=== PATIENT | male | born 1960 | race Caucasian/White ===

== ENCOUNTER 2025-01-10 10:47 | Outpatient (REF) | payer OTHER, SELFPAY ==
[2025-01-10 14:20] LABS: Hematocrit 41.3 % (42.0-52.0); Hemoglobin 13.9 g/dl (14.0-18.0); Mean Corpuscular HGB Conc 33.7 g/dl (31.0-36.0); Mean Corpuscular Hemoglobin 30.3 pg (27.0-33.0); Mean Corpuscular Volume 90.0 fL (80.0-98.0); NRBC Abs Auto 0.000 X10*3/uL (0.0-0.012); NRBC Pct Auto 0.0 /100WBC (0.0-0.2); Platelet Count 168 X10*3/uL (160-400); Red Blood Count 4.59 X10*6/uL (4.60-5.80); White Blood Count 8.3 X10*3/uL (4.8-10.8)
[2025-01-10 14:59] LABS: Alanine Aminotransferase 22 U/L (0-40); Albumin Level 4.3 g/dL (3.5-5.0); Alkaline Phosphatase 75 U/L (39-117); Anion Gap 11 (12-20); Aspartate Amino Transferase 27 U/L (5-37); Blood Urea Nitrogen 16 mg/dL (9-16); Calcium 9.2 mg/dL (8.4-10.2); Carbon Dioxide 26 mmol/L (22-29); Chloride 108 mmol/L (96-108); Cholesterol 169 mg/dL (<200); Estimated Glomerular Filt Rate > 60; HDL Cholesterol 34 mg/dL (>40); Potassium 4.1 mmol/L (3.3-5.1); Sodium 141 mmol/L (135-145); Total Protein 6.9 g/dL (6.5-8.0); Triglycerides 107 mg/dL (<150)
[2025-01-10 15:22] LABS: Ferritin 27 ng/mL (20-250)
[2025-01-10 15:32] LABS: Folate 9.1 ng/mL (> or = 4.0); Vitamin B12 302 pg/mL (200-900)
[2025-01-10 18:23] LABS: Appearance Urine Clear; Glucose Urine UA Negative (Negative); PH 6.0 (5.0-9.0); Specific Gravity - Urine 1.010 (1.005-1.025)
[2025-01-18 13:18] LABS: Testosterone, Free 59.2 pg/mL (35.0-155.0)
== END 2025-01-10 10:48 | disposition home or self-care (01) ==
LOC: HO.WFDLDS 10:47
PROVIDERS: PCP Nurse Practitioner Family; Visit Provider Nurse Practitioner Family
DX: Z23 Encounter for immunization (principal); Z76.89 Persons encountering health services in other specified circumstances; R30.0 Dysuria; N52.9 Male erectile dysfunction, unspecified; R32 Unspecified urinary incontinence; E66.9 Obesity, unspecified; R11.2 Nausea with vomiting, unspecified; R01.1 Cardiac murmur, unspecified; K46.9 Unspecified abdominal hernia without obstruction or gangrene; Z68.33 Body mass index [BMI] 33.0-33.9, adult; Z98.52 Vasectomy status; Z98.890 Other specified postprocedural states
CPT/HCPCS: 36415; 80053; 80061; 81003; 82306; 82570; 82607; 82728; 82746; 83036; 84153; 84402; 84403; 84443; 85027; 90471; 90472; 90656; 90715; 96127; 99202

== ENCOUNTER 2025-01-10 10:47 | Outpatient (AMB) | payer OTHER, SELFPAY ==
--- NOTE | 2025-01-10 10:53 | A.OFFPC_ITS ---
Vital Signs 01/10/25 11:00 Height 6 ft Weight 246 lb 2 oz BMI 33.4 BP 136/76 Blood Pressure Location Lt brachial Position Sitting Respiration 12 Pulse 68 Pulse Source Pulse Oximeter Temp 97.2 F Temp Source Oral Pulse Oximetry (%) 99 Oxygen Delivery Method Room Air Intake Visit Reasons: est care/hernia issues Intake Note: New patient to [facility] Draw End Hand Required: No Allergies No Known Allergies Allergy (Verified 01/10/25 11:09) Medication List - Last Reconciled 01/10/25 by KIMBERLI Richey No Known Home Meds Tobacco use date assessed: 01/10/25 Dental Screening Dental Screen Date: 01/10/25 Did you have a dental visit in the last 12 months?: Yes Did you have a dental problem in the last 6 months where you did not have access to dental care?: No Was dental information given to patient?: Patient has dentist HPI HPI Comments History of Present Illness Details 64 y/o M with obesity, ED, urinary incon t s/p vasectomy, hernia repair R inguinal and abdominal Social , ( Rissa), lives w/ disabled dtr Health Maintenance Colon Tdap 01/10/25 Flu 01/10/25 Specialists Gen Surg [facility] History of Present Illness The patient is a 64-year-old male presenting to [facility]. No records Erectile dysfunction: - The patient reports experiencing erect ile dysfunction, noting that he can achieve an erection, but it is not firm enough for penetration and may be lost with the feeling of needing to urinate. - He has been receiving medication, pres umably sildenafil, from an online service but reports that it does not work. - He previously tried a male enhancement supplement about two years ago without any effect. - His testosterone levels have not been checked. - He underwent a vasectomy 30 years ago and was told at the time that it might affect his performance as he aged. Recurrent incisional hernia: - The patient has a history of an umbili aidan hernia repair that had a poor outcome due to severe postoperative vomiting. - He also underwent a lower hernia repai r, right inguinal, at a different facility ([facility]), which had a better outcome. - He reports a current hernia that is so metimes bothersome, with associated numbness in the area. - He notes a change in his bowel habits, where he no longer feels premonitory back pain before a bowel movement. - Now has pain and swelling in left ingu inal area present for years but worsening Red dye sensitivity: - The patient reports developing a sensi tivity to red dye after taking a certain supplement. - He also associated drinking a red-colo red beverage with urinary leakage at night. - Ingestion of red dye, even from a adama schino mariscal, causes his body to reject it, resulting in abdominal pain and rapid expulsion. Obesity: - The patient has a history of obesity w ith a BMI of 33.4. Past Medical History - Past Medical History: Obesity with a B NC of 33.4. - Past Surgical History: Vasectomy, yash ia repair. - Allergies: No known drug allergies; re ports sensitivity to red dye. - Medications: Takes no medications. - Social History: He is and live s with his daughter who has a disability. - Immunizations: Reports receiving six C OVID-19 shots. Review of Systems - Genitourinary: Reports erectile dysfun ction, characterized by an inability to maintain an erection sufficient for penetration. - Genitourinary: Reports urinary leakage , which he associates with drinking red- colored beverages and also possibly related to his abdominal hernias and the urge to urinate. - Integumentary: Reports cracked skin on heels. - Gastrointestinal: Reports abdominal pa in and rapid passage of stool after ingesting red dye. - Neurological: Reports intermittent num bness in the area of his abdominal hernia. - Allergies: Denies medication allergies but reports a sensitivity to red dye. Physical Exam General: Well developed, well nourished, in no acute distress. Appears stated age. Head: Normocephalic, atraumatic. Eyes: Pupils are equal, round and reactive to light and accommodation. Conjunctivae are clear. Lungs: Clear to auscultation bilaterally. No rales, rhonchi or wheeze noted. Good air flow in all cantrell. Heart: Regular rate and rhythm. 1/6 murmur is noted. No clicks, rubs or gallops are noted. Abdomen: see below Musculoskeletal: Joints are nontender, without swelling, redness, or effusions. Pulses: Peripheral pulses are equal and palpable bilaterally. Extremities: No clubbing, cyanosis nor edema is noted. Psych: Mood and affect appropriate. Results Pending Medical Decision Making The patient is a 64-year-old male establishing care, presenting with chronic erectile dysfunction and symptomatic recurrent abdominal hernias. His erectile dysfunction has not responded to sildenafil from an online service, and the etiology is unclear. An underlying cause, such as low testosterone or hyperglycemia, should be investigated before considering alternative pharmacotherapy. Therefore, I ordered labs including testosterone and a basic metabolic panel. On physical exam, a new heart murmur was auscultated. Although likely benign, it warrants investigation to rule out significant structural heart disease, and thus an echocardiogram is ordered. The abdominal exam revealed multiple, significant hernias, including recurrent o conchis, which are clearly symptomatic, causing numbness and discomfort. These require surgical evaluation, and a referral to general surgery is indicated. The surgeons will likely order a CT scan for preoperative planning. For health maintenance, the patient agreed to and will receive Tdap and influenza immunizations today. A follow-up visit is scheduled in four weeks to review all results and adjust the plan accordingly. Plan 1. Recurrent & New Hernia - Physical exam confirms multiple herni as, which are symptomatic. - A referral will be placed for the [facility] surgery group to evaluate the patient. - The patient was informed that the surg eons will likely order additional imaging, such as a CT scan. 2. Erectile Dysfunction - The plan is to investigate for an unde rlying cause, such as low testosterone or high blood sugar, before prescribing medication. - Lab work, including a testosterone lev el, was ordered. 3. New Heart Murmur - An echocardiogram (ultrasound of the h eart) is ordered to evaluate the newly discovered murmur. - The patient will receive a call to [facility] the test. 4. Health Maintenance - Administered influenza and Tdap vaccin ations. - Ordered baseline labs and a urinalysis . - Instructed the patient to sign up for the patient portal to receive results and communicate. - Scheduled a follow-up visit in [facility] four weeks to review the results. Patient Instructions - Please go to our lab to have blood wor k and a urine sample collected before you leave today. - You will receive Tdap (tetanus) and fl u shots today before you go. - You will get a phone call to schedule an echocardiogram, which is an ultrasound of your heart, to look at the murmur that was heard today. - Our office will send a referral to the general surgery team for your hernias, and their office will call you to set up an appointment. - The surgeons will likely order more te sts, like a CAT scan, to get a better look at the hernias. - Please make sure to sign up for our [facility] [employer] portal, which is a secure website where you can see your test results and send messages to me. - Please schedule a follow-up appointmen t with me in about four weeks to go over your test results. Consent The patient verbally consented to receiving the Tdap and influenza vaccinations after the benefits were explained. He also agreed to the plan for bloodwork, an echocardiogram, and a referral to general surgery. Patient was informed and verbally consented to the use of an ambient scribe for clinic note documentation during this visit. Total time spent caring for the patient today was 45 minutes. This includes time spent before the visit reviewing the chart, time spent during the visit, and time spent after the visit on documentation, reviewing laboratory results, diagnostic imaging, medications, performing a medically necessary evaluation, counseling on diagnoses, care coordination, ordering appropriate tests, ordering appropriate medications, review of tests performed by other providers, reporting test results with the patient, communication with other healthcare providers. [facility] Medical History (Updated 01/10/25 @ 11:43 by KIMBERLI Richey) Hernia Surgical History (Updated 01/10/25 @ 11:18 by KIMBERLI Richey) H/O hernia repair H/O vasectomy Family History (Updated 01/10/25 @ 11:06 by Dario Monteiro MA) Maternal Grandmother Diabetes Mother Cancer Thyroid disorder Substance abuse Social History (Updated 01/10/25 @ 10:54 by Dario Monteiro MA) Household Members: Spouse, Family and Children Both parents involved: No Caregiver staying overnight: No Housing: House Are you a primary prompt care rn to a significant other at home: Yes Do you presently have visiting nurse or other home services: No 75 years or older and lives alone: No Alcohol intake: current Alcohol intake frequency: a few times a month Patient Tobacco Use Status: Never used Tobacco e-Cigarette/Vaping Use: Never Used Second Hand Smoke Exposure: No service: No Current occupational status: other 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 1. Little interest or pleasure in doing things: not at all 2. Feeling down, depressed, or hopeless: not at all 3. Trouble falling or staying asleep, or sleeping too much: not at all 4. Feeling tired or having little energy: not at all 5. Poor appetite or overeating: not at all 6. Feeling bad about yourself - or that you are a failure or have let yourself or your family down: not at all 7. Trouble concentrating on things, such as reading the newspaper or watching television: not at all 8. Moving or speaking so slowly that other people could have noticed. Or the opposite - being so fidgety or restless that you have been moving around a lot more than usual: not at all 9. Thoughts that you would be better off or of hurting yourself in some way: not at all Total score: 0 Depression Screening Interpretation: Negative Depression Screening Done: Yes 35643 - PHQ-9 Billing: Yes Source: Developed by Drs. Shahriar Wylie, Juanita Norton, uLc Matthews and colleagues, with an educational gee from [employer]. Thrive Questionnaire Date Thrive assessed: 01/10/25 I am a: Patient What is your living situation today?: I have a steady place to live Within the past 12 months, did the food you bought not last and you didn't have the money to get more?: Never true Within the past 12 months, did you worry whether your food would run out before you got money to buy more?: Never true Do you have trouble paying for medicines?: No Do you have trouble getting transportation to medical appointments?: No Do you have trouble paying your heating and electricity bill?: No Do you have trouble taking care of your child, family member or friend?: Yes Do you have trouble with day-to-day activities such as bathing, preparing meals, shopping, managing finances, etc.?: No Are you currently unemployed and looking for a job?: No Are you interested in more education?: No Please select the resources that you would like help with: None Currently or been in a relationship where the following occur: No concerns reported THRIVE Score: 0 AUDIT C Alcohol Use Questionnaire (AUDIT-C) 1. How often do you have a drink containing alcohol?: Monthly or less 2. How many drinks containing alcohol do you have on a typical day when you are drinking?: 1 or 2 3. How often do you have six or more drinks on one occasion?: Never Total Score: 1 Score Reviewed/Action Taken: Yes MILLIE-7 AMB Questionnaire MILLIE-7 Date MILLIE - 7 assessed: 01/10/25 Feeling nervous, anxious, or on edge: 0 = Not at all Not being able to stop or control worryin = Not at all Worrying too much about different things: 0 = Not at all Trouble relaxin = Not at all Being so restless that it is hard to sit still: 0 = Not at all Becoming easily annoyed or irritable: 0 = Not at all Feeling afraid as if something awful might happen: 0 = Not at all Total MILLIE-7 score (0-4 normal; 5-9 mild; 10-14 moderate; 15-21 severe): 0 Source: Developed by Drs. Shahriar Wylie, Juanita Norton, Luc Matthews and colleagues, with an educational gee from [employer]. MILLIE-7 Assessment Billing MILLIE-7 Assessment Tool: MILLIE-7 Assessment 71585 Physical exam (Primary Care) Vital Signs: Last Vital Signs Temp 97.2 F 01/10/25 11:00 Pulse 68 01/10/25 11:00 Resp 12 01/10/25 11:00 BP 136/76 01/10/25 11:00 Pulse Ox 99 01/10/25 11:00 Oxygen Delivery Method Room Air 01/10/25 11:00 BMI result Body Mass Index 33.4 BMI Assessment/Plan discussion: High BMI High, discussed plan: lifestyle Tobacco/Smoking Status: Tobacco use Status Tobacco use date assessed 01/10/25 01/10/25 10:55 Patient Tobacco Use Status Never used Tobacco 01/10/25 11:08 e-Cigarette/Vaping Use Never Used 01/10/25 11:08 PHQ-9: PHQ-9 Score PHQ-9: Total score 0 01/10/25 11:06 Depression Screening Interpretation: Negative Thrive Assessment: Date of Thrive Assessment Date Thrive assessed 11/14/25 11/14/25 10:55 Currently or been in a relationship where the following occur: No concerns repor logan GI Inspection: Yes obesity and Yes scar Palpation (GI): Soft to palpation and Hernia present (incisional from the R inguinal hernia repair ) indirect inguinal on the left, ventral and other Auscultation: normal bowel sounds Office Procedures Flu Questionnaire Does the patient have a severe egg allergy?: No Does the patient have severe life threatening allergies?: No Does the patient have a fever or illness today?: No Has the patient ever had Guillain-Antigo Syndrome?: No Has the patient ever had any past reaction to a flu shot?: No Immunizations Fluarix [id number] (PF) 45 mcg (15 mcg x 3)/0.5 mL IM syringe Performing Provider: KIMBERLI Richey Performing Location: [facility] Family Medicine Administered by: Dario Monteiro MA on 01/10/25 11:38 Dose Route Admin Location Dispensed Lot Number Expiration Date NDC Copy Manager 0.5 mL IM Right Deltoid 0.5 mL [id number] 08/26/25 [id number] [employer] VIS Given Date VIS Provided VIS Publication Date 01/10/25 Single Vaccine 24 Eligibility Eligibility Date Funding Source Not VFC Eligible 01/10/25 Private Boostrix Tdap 2.5 Lf unit-8 mcg-5 Lf/0.5 mL intramuscular syringe Performing Provider: KIMBERLI Richey Performing Location: [facility] Family Medicine Administered by: Dario Monteiro MA on 01/10/25 11:39 Dose Route Admin Location Dispensed Lot Number Expiration Date ND Copy Manager 0.5 mL IM Left Deltoid 0.5 mL [id number] 01/24/27 [id number] [employer] Total Dispensed Waste 0.5 mL 0 % VIS Given Date VIS Provided VIS Publication Date 01/10/25 Single Vaccine 20 Eligibility Eligibility Date Funding Source Not VFC Eligible 01/10/25 Private Coding Level of Care Code New Pt Level 4 (38719) Complex EM visit Add On G2211 Diagnoses Encounter to establish care Z76.89 Obesity (BMI 30-39.9) E66.9 Erectile dysfunction, unspecified erectile dysfunction type N52.9 Erectile dysfunction type: unspecified Urinary incontinence, unspecified type R32 Urinary Incontinence type: unspecified incontinence Influenza vaccination administered at current visit Z23 Need for Tdap vaccination Z23 PONV (postoperative nausea and vomiting) R11.2; Z98.890 Hernia K46.9 Heart murmur on physical examination R01.1 Additional Codes MILLIE-7 Assessment Billing - MILLIE-7 Assessment Tool: MILLIE-7 Assessment 24216 ([id number]) PHQ-9 - 41607 - PHQ-9 Billing: Yes ([id number]) Assessment & Plan Assessment & Plan (1) Encounter to establish care: Code(s): Z76.89 - Persons encountering health services in other specified circumstances (2) Obesity (BMI 30-39.9): Code(s): E66.9 - Obesity, unspecified Category: Medical (3) Erectile dysfunction: Code(s): N52.9 - Male erectile dysfunction, unspecified Category: Medical Qualifiers: Erectile dysfunction type: unspecified Qualified Code(s): N52.9 - Male erectile dysfunction, unspecified (4) Urinary incontinence: Code(s): R32 - Unspecified urinary incontinence Category: Medical Qualifiers: Urinary Incontinence type: unspecified incontinence Qualified Code(s): R32 - Unspecified urinary incontinence (5) Influenza vaccination administered at current visit: Onset Date: ~01/10/25 Code(s): Z23 - Encounter for immunization Category: Medical (6) Need for Tdap vaccination: Onset Date: ~01/10/25 Code(s): Z23 - Encounter for immunization Category: Medical (7) PONV (postoperative nausea and vomiting): Code(s): R11.2 - Nausea with vomiting, unspecified; Z98.890 - Other specified postprocedural states Category: Medical (8) Hernia: Code(s): K46.9 - Unspecified abdominal hernia without obstruction or gangrene Category: Medical (9) Heart murmur on physical examination: Code(s): R01.1 - Cardiac murmur, unspecified Category: Medical Plan . Orders: Orders UA CC w/rflx Micro + Cult Today E66.9 - Obesity, unspecified, N52.9 - Male erectile dysfunction, unspecified, R30.0 - Dysuria, R32 - Unspecified urinary incontinence Prostate Specific Antigen Scr Today E66.9 - Obesity, unspecified, N52.9 - Male erectile dysfunction, unspecified, R32 - Unspecified urinary incontinence Ferritin Today E66.9 - Obesity, unspecified, N52.9 - Male erectile dysfunction, unspecified, R32 - Unspecified urinary incontinence Microalbumin, Random (w Creat) Today E66.9 - Obesity, unspecified, N52.9 - Male erectile dysfunction, unspecified, R32 - Unspecified urinary incontinence Vitamin B12 and Folate Today E66.9 - Obesity, unspecified, N52.9 - Male erectile dysfunction, unspecified, R32 - Unspecified urinary incontinence TSH reflex Free T4 Today E66.9 - Obesity, unspecified, N52.9 - Male erectile dysfunction, unspecified, R32 - Unspecified urinary incontinence Vitamin D 25-OH Total Today E66.9 - Obesity, unspecified, N52.9 - Male erectile dysfunction, unspecified, R32 - Unspecified urinary incontinence Testosterone, Free/Total Today E66.9 - Obesity, unspecified, N52.9 - Male erectile dysfunction, unspecified, R32 - Unspecified urinary incontinence Influenza [id number] Immunization Today Z23 - Encounter for immunization Complete Blood Count no Diff Today E66.9 - Obesity, unspecified, N52.9 - Male erectile dysfunction, unspecified, R32 - Unspecified urinary incontinence Comprehensive Met. Panel Today E66.9 - Obesity, unspecified, N52.9 - Male erectile dysfunction, unspecified, R32 - Unspecified urinary incontinence Hemoglobin A1c Today E66.9 - Obesity, unspecified, N52.9 - Male erectile dysfunction, unspecified, R32 - Unspecified urinary incontinence Lipid Panel Today E66.9 - Obesity, unspecified, N52.9 - Male erectile dysfunction, unspecified, R32 - Unspecified urinary incontinence CA echo transthoracic complete Today R01.1 - Cardiac murmur, unspecified TDaP Immunization Today Z23 - Encounter for immunization Referrals General Surgery Referral K46.9 - Unspecified abdominal hernia without obstruction or gangrene Patient Instructions: Walk-In Care (Urgent Care): We Make it Easy Walk-in for urgent medical issues such as: ? Seasonal Allergies ? Insect Bites ? Cough ? Diarrhea ? Acute Asthma Attacks ? Back, Knee or Joint Pain ? Ear Infection ? Fever without a Rash ? Headaches ? Nausea ? Eugenio Saenz Eye, Rash or Skin Irritation ? Sore Throat ? Sports Physicals ? Vomiting Most insurances are accepted. Patients do not need to be part of the [facility] to seek care at the walk-in clinic. Locations [address], [place] Open Monday through Monday 8am-5pm *Hours may vary due to staffing availability. To confirm Walk-In Care hours please call. [address] [place] [address] ? [phone] [facility] Walk-In Care in [place] provides services to ages 18 and over. Open Monday-Monday: 7 a.m. to 5 p.m. and Monday: 9 a.m. to 3 p.m.* *Hours may vary due to staffing availability. To confirm Walk-In Care hours in [place], please call [phone]. [address] [place] [address] ? [phone] [facility] Walk-In Care in [place] provides services to ages 12 and over. Open Monday-Monday: 8 a.m. to 5 p.m. Hours may vary due to staffing availability. To confirm Walk-In Care hours in [place], please call [phone]. LABORATORY SERVICES: [facility] Lab ? Primary Location [address] [place] [address] Monday through Monday 6:00 AM ? 5:00 PM Monday 7:00 AM ? 11:00 AM* [phone] The [facility] Lab is centrally located near the front entrance of the [facility] for easy outpatient access. Convenient parking is provided for outpatients. *Hours may vary due to staffing availability. To confirm Laboratory hours for any location, please call [phone]. Offsite Location For your convenience, we offer offsite laboratory draw stations at the following locations: [address] [place] [address] ? [facility] [address], [address] Monday through Monday 7:30 AM ? 1:00 PM* [phone] *Hours may vary due to staffing availability. To confirm Laboratory hours for any location, please call [phone]. [place] ? [address] Monday through Monday 6:00 AM ? 3:30 PM* Monday 6:30 AM ? 3 PM* [phone] *Hours may vary due to staffing availability. To confirm Laboratory hours for any location, please call [phone]. [address] [facility] Monday through Monday 7:30 AM ? 4:00 PM* [phone] *Hours may vary due to staffing availability. To confirm Laboratory hours for any location, please call [phone] [place] [address] Monday through 9:00 AM ? 4:00 PM* *Hours may vary due to staffing availability. To confirm Laboratory hours for any location, please call [phone]. Appointments are not necessary. Walk-ins are welcome. Like all the departments throughout the [facility], our Lab undergoes frequent reviews to ensure the quality and accuracy of test results, and our staff takes special pride in its status as a nationally accredited facility. Patient Portal: [facility] ONE PATIENT. ONE RECORD. BETTER CARE. [facility] has a fully integrated, cutting- edge mobile electronic health information system that has revolutionized the way we care for our patients and manage our organization. This system improves communication and coordination enabling us to provide safe, higher-quality care, and an overall positive experience for staff and patients. Our first priority, as always, is to deliver the highest quality care possible. The system is running in the background supporting that priority. This portal is for all [facility] services and practices. If you are experiencing any technical difficulties with enrolling or logging into the Patient Portal please complete the [facility] Patient Portal Technical Support Form. [facility] now offers a new secure on-line interactive tool for patients to review their health information ? ?Patient Portal. This interactive web portal will enable patients and their families to take an active role in their care by providing easy, secure access to their health information via the internet. The Patient Portal provides patients with instant access to their health information, including laboratory results, medications, allergies, demographic information, visit history, and more. In addition to managing their own care, parents and health care proxies with authorized consent will appreciate the ability to access the records of those individuals for whom they provide care. Please note: if you wish to gain access (Proxy) to another patient?s portal, you will be required to come to the Medical Records Department in person at [facility]. Both the patient giving proxy access and the proxy will need to provide photo identification and complete the appropriate authorization. The Patient Portal also allows track their appointments online. The [facility] Patient Portal also saves patients time by allowing them to submit updates to their demographic and contact information prior to their visits. Por eleuterio email notifications will also alert patients to any new activity on their portal, such as test results and new appointments. In order to initially enroll in the [facility] Patient Portal, you will need to enter some required information including the following: * your [facility] Medical Record number * your personal home email address * name * date of Please note: In order to enroll in the [facility] Patient Portal, we need to have your email address on file in your electronic medical record. ?The email address needs to be specific for one person (yourself) in order for your Portal enrollment to be successful. ?You can update your email address in person with our Registration staff when you are registering for a hospital visit. ?Otherwise, you will need to come to the Health Information Management (Medical Records) Department at [facility]. ?We are open from Monday ? Monday from 7:30 a.m. ? 4:30 p.m. ?You will be required to present a photo id. Once you have successfully enrolled in the Patient Portal, you will receive a one-time user id and password for the Portal, sent to your email address. ?This will allow you to log into the Patient Portal within 99 hrs and reset your own l ogon id and password, and define personal security questions. ?Once your permanent login and password have been set, you can log into the [facility] Patient Portal at any time via the blue button above or from the Portal Logon button on any page of the [facility] website. [facility] and [facility] encourage all of our patients to enroll in Patient Portal as it presents a valuable opportunity for patients and their families to actively participate in their care and stay healthy Welcome to [facility]. ?We look forward to working with you.
[2025-01-10 11:00] VITALS: BP 136/76; PULSE 68; RESP 12; TEMP 36.2; O2SAT 99; BMI 33.4
== END 2025-01-10 11:41 | disposition home or self-care (01) ==
LOC: HO.HMCFM 10:48
PROVIDERS: PCP Nurse Practitioner Family; Visit Provider Nurse Practitioner Family
DX: Z76.89 Persons encountering health services in other specified circumstances (principal); E66.9 Obesity, unspecified; N52.9 Male erectile dysfunction, unspecified; R32 Unspecified urinary incontinence; Z23 Encounter for immunization; R11.2 Nausea with vomiting, unspecified; Z98.890 Other specified postprocedural states; K46.9 Unspecified abdominal hernia without obstruction or gangrene; R01.1 Cardiac murmur, unspecified; Z68.33 Body mass index [BMI] 33.0-33.9, adult

== ENCOUNTER 2025-02-05 12:43 | Outpatient (AMB) | payer OTHER, SELFPAY ==
--- NOTE | 2025-02-05 12:46 | A.OFFPC_ITS ---
Vital Signs 02/05/25 12:50 Height 6 ft Weight 249 lb 2 oz BMI 33.8 BP 132/70 Blood Pressure Location Rt brachial Position Sitting Respiration 12 Pulse 76 Pulse Source Pulse Oximeter Temp 97.6 F Temp Source Oral Pulse Oximetry (%) 96 Oxygen Delivery Method Room Air Intake Visit Reasons: fu w/ me to review labs Intake Note: Follow up to review labs. 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 Required: No Allergies No Known Allergies Allergy (Verified 02/05/25 12:48) Medication List - Last Reconciled 02/05/25 by MILDRED Richey No Known Home Meds Tobacco use date assessed: 02/05/25 Dental Screening Dental Screen Date: 02/05/25 Did you have a dental visit in the last 12 months?: Yes Did you have a dental problem in the last 6 months where you did not have access to dental care?: No Was dental information given to patient?: Patient has dentist HPI HPI Comments History of Present Illness Details 64 y/o M with obesity, ED, urinary incon t, mild anemia, vit d def, PVD s/p vasectomy, hernia repair R inguinal and abdominal Social , ( Rissa), lives w/ disabled dtr Health Maintenance Colon [place] [facility] 02/05[place]25 Tdap 01/10/25 Flu 01/10/25 Specialists Gen Surg [facility] [place] [facility] [place] [facility] History of Present Illness The patient is a 64 year old male presenting for a follow-up on laboratory results. Anemia: - The patient was found to have new mild anemia on recent labs, which is not a normal finding for him. - The patient reports experiencing dizzi ness, which may be related to this. - He denies a history of prior colonosco py screenings. - The patient monitors his stool and has not observed any red color. Hypercholesterolemia: - Labs showed that the cholesterol was a little high. - He reports a diet that includes items such as baked potatoes with cheese, butter, and tobin. - He is not currently on cholesterol med ication. Abdominal issues: - He has a history of a hernia. - The patient has an upcoming appointmen t with a general surgeon, Dr. Morris, for the hernia. - He reports abdominal burning, pain in the back, and audible sounds from his abdomen after eating. - He has a history of a prior abdominal surgery that he feels was not appropriately handled. Vitamin D deficiency: - Recent labs showed a low vitamin D lev el of 28.5. - The patient is not currently taking a supplement. Erectile dysfunction: - The patient previously discussed issue s with sexual function. - Testosterone levels were found to be n ormal, but on the lower end of the normal range. Review of Systems - General: Denies fever. - GI: Reports bloating and audible bowel sounds after eating. - Neurological: Reports dizziness. Repor ts bumping into things more frequently. - : Reports issues with erectile funct ion. Physical Exam General: Well developed, well nourished, in no acute distress. Appears stated age. Head: Normocephalic, atraumatic. Eyes: Pupils are equal, round and reactive to light and accommodation. Conjunctivae are clear. Lungs: Clear to auscultation bilaterally. No rales, rhonchi or wheeze noted. Good air flow in all cantrell. Heart: Regular rate and rhythm. 1/6 murmur is noted. No clicks, rubs or gallops are noted. Abdomen: see below Musculoskeletal: Joints are nontender, without swelling, redness, or effusions. Pulses: Peripheral pulses are equal and palpable bilaterally, chronic hemosiderin changes BLE Extremities: No clubbing, cyanosis nor edema is noted. Psych: Mood and affect appropriate. Results see below Medical Decision Making The patient is a 64-year-old male here for a follow-up visit to review his recent laboratory results. Grady findings include new-onset mild anemia, elevated cholesterol, and vitamin D deficiency. The finding of anemia is abnormal for this patient and warrants further investigation for a gastrointestinal source of bleeding, despite the patient's report of no visible blood in his stool. Given that he has never had a colonoscopy, a referral for this screening is standard procedure to evaluate the colon. His reported abdominal symptoms and history of hernia might be related, and his upcoming surgical consultation is appropriate. His hypercholesterolemia, though not severe, will be addressed with a low-dose statin (atorvastatin) in conjunction with dietary modifications. A MVI supplement was recommended for his vitamin D deficiency, which is important for bone and cognitive health. This supplement also contains iron, which can help address his anemia. We will repeat labs in three months to monitor his blood counts, cholesterol, and vitamin D levels. Regarding his concerns about erectile dysfunction, his testosterone level was in the low-normal range. A referral to a urologist will be placed for further evaluation and management options. Plan 1. Anemia - The patient was found to have new mild anemia on recent labs. - A referral will be placed for a colono scopy to investigate for a GI source of bleeding, as this is standard procedure for new anemia and the patient has never had a screening. - The recommended multivitamin supplemen t contains iron, which may also help his blood count. - Will recheck blood counts in 3 months. 2. Hypercholesterolemia - The patient's cholesterol was noted to be slightly high. - Plan is to start a low dose of atorvas tatin, taken once daily. - The patient was counseled on reducing intake of high-cholesterol foods. - Will repeat labs in three months to ch leeanne cholesterol levels. 3. Vitamin D Deficiency - The patient has a low vitamin D level of 28.5. - Recommended starting a multivitamin lauren pplement which contains vitamin D. - Will recheck vitamin D level in three months. 4. Erectile Dysfunction - The patient reports issues with erecti le function. - Labs showed his testosterone is on the lower end of normal. - He is interested in treatment options. - Plan to place a referral to urology fo r further evaluation and management, including possible medication samples. 5. Hernia - The patient reports ongoing symptoms r elated to a hernia. - He has an appointment scheduled with Brandi Morris, a general surgeon, on 08/12 for evaluation. - Continue with surgical consultation. Patient Instructions - Start taking the recommended multivita min supplement as directed, which will help with your vitamin D and iron levels. - Start taking the new prescription for atorvastatin once a day to help lower your cholesterol. You can take this at the same time as your multivitamin. - Try to reduce the amount of foods you eat that are high in cholesterol, like items with a lot of cheese, butter, and tobin. - Our office will put in a referral for you to see a specialist for a colon oscopy. They will call you to schedule an initial consultation first. - Our office will also put in a referral for you to see a urologist to discuss your concerns about sexual function. - Complete repeat blood work in three mo nths to check your blood counts, cholesterol, and vitamin D levels. - Schedule a follow-up appointment with me in three months. You are on a cancellation list and may be called for an earlier appointment if one becomes available. - Keep your appointment with the surgeon , Dr. Morris, to discuss your hernia. Consent Consent was not explicitly discussed in the conversation provided. Patient was informed and verbally consented to the use of an ambient scribe for clinic note documentation during this visit. [facility] Medical History (Updated 02/05/25 @ 14:59 by KIMBERLI Richey) Hernia Surgical History (Updated 01/10/25 @ 11:18 by KIMBERLI Richey) H/O hernia repair H/O vasectomy Family History (Updated 01/10/25 @ 11:06 by Dario Monteiro MA) Maternal Grandmother Diabetes Mother Cancer Thyroid disorder Substance abuse Social History (Updated 01/10/25 @ 11:08 by Dario Monteiro MA) Household Members: Spouse, Family and Children Both parents involved: No Caregiver staying overnight: No Housing: House Are you a primary child care leader to a significant other at home: Yes Do you presently have visiting nurse or other home services: No 75 years or older and lives alone: No Alcohol intake: current Alcohol intake frequency: a few times a month Patient Tobacco Use Status: Never used Tobacco e-Cigarette/Vaping Use: Never Used Second Hand Smoke Exposure: No service: No Current occupational status: other 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 1. Little interest or pleasure in doing things: not at all 2. Feeling down, depressed, or hopeless: not at all 3. Trouble falling or staying asleep, or sleeping too much: not at all 4. Feeling tired or having little energy: not at all 5. Poor appetite or overeating: not at all 6. Feeling bad about yourself - or that you are a failure or have let yourself or your family down: not at all 7. Trouble concentrating on things, such as reading the newspaper or watching television: not at all 8. Moving or speaking so slowly that other people could have noticed. Or the opposite - being so fidgety or restless that you have been moving around a lot more than usual: not at all 9. Thoughts that you would be better off or of hurting yourself in some way: not at all Total score: 0 Depression Screening Interpretation: Negative Depression Screening Done: Yes 76860 - PHQ-9 Billing: Yes Source: Developed by Drs. Shahriar Wylie, Juanita Norton, Luc Matthews and colleagues, with an educational gee from [employer]. Thrive Questionnaire Date Thrive assessed: 02/05/25 I am a: Patient What is your living situation today?: I have a steady place to live Within the past 12 months, did the food you bought not last and you didn't have the money to get more?: Never true Within the past 12 months, did you worry whether your food would run out before you got money to buy more?: Never true Do you have trouble paying for medicines?: No Do you have trouble getting transportation to medical appointments?: No Do you have trouble paying your heating and electricity bill?: No Do you have trouble taking care of your child, family member or friend?: Yes Do you have trouble with day-to-day activities such as bathing, preparing meals, shopping, managing finances, etc.?: No Are you currently unemployed and looking for a job?: No Are you interested in more education?: No Please select the resources that you would like help with: None Currently or been in a relationship where the following occur: No concerns repor logan THRIVE Score: 0 MILLIE-7 AMB Questionnaire MILLIE-7 Date MILLIE - 7 assessed: 02/05/25 Feeling nervous, anxious, or on edge: 0 = Not at all Not being able to stop or control worryin = Not at all Worrying too much about different things: 0 = Not at all Trouble relaxin = Not at all Being so restless that it is hard to sit still: 0 = Not at all Becoming easily annoyed or irritable: 0 = Not at all Feeling afraid as if something awful might happen: 0 = Not at all Total MILLIE-7 score (0-4 normal; 5-9 mild; 10-14 moderate; 15-21 severe): 0 Source: Developed by Drs. Shahriar Wylie, Luc Hernandezoenke and colleagues, with an educational gee from [employer]. MILLIE-7 Assessment Billing MILLIE-7 Assessment Tool: MILLIE-7 Assessment 13344 Physical exam (Primary Care) Vital Signs: Last Vital Signs Temp 97.6 F 02/05/25 12:50 Pulse 76 02/05/25 12:50 Resp 12 02/05/25 12:50 BP 132/70 02/05/25 12:50 Pulse Ox 96 02/05/25 12:50 Oxygen Delivery Method Room Air 02/05/25 12:50 BMI result Body Mass Index 33.8 BMI Assessment/Plan discussion: High BMI High, discussed plan: lifestyle Tobacco/Smoking Status: Tobacco use Status Tobacco use date assessed 02/05/25 02/05/25 12:52 Patient Tobacco Use Status Never used Tobacco 02/05/25 12:47 e-Cigarette/Vaping Use Never Used 02/05/25 12:47 PHQ-9: PHQ-9 Score PHQ-9: Total score 0 02/05/25 13:25 Depression Screening Interpretation: Negative Thrive Assessment: Date of Thrive Assessment Date Thrive assessed 02/05/25 02/05/25 12:47 Currently or been in a relationship where the following occur: No concerns reported GI Inspection: Yes obesity and Yes scar Palpation (GI): Soft to palpation and Hernia present (incisional from the R inguinal hernia repair ) indirect inguinal on the left, ventral and other Auscultation: normal bowel sounds Results Reviewed Results Reviewed: Labs from 01/10/25 show mild anemia , vit d def, HLD Vit d 25, LDL 114, HDL 34, rbc 4.59, hgb 13.9, hct 41.3 testosterone 302; 59.2 (low end of normal) Coding Level of Care Code Est Pt Level 4 (02925) Add On Problem Visit Only Diagnoses Vitamin D deficiency E55.9 Mild anemia D64.9 Mixed hyperlipidemia E78.2 Hyperlipidemia type: mixed hyperlipidemia Erectile dysfunction, unspecified erectile dysfunction type N52.9 Erectile dysfunction type: unspecified Urinary incontinence, unspecified type R32 Urinary Incontinence type: unspecified incontinence Heart murmur on physical examination R01.1 Hernia K46.9 PVD (peripheral vascular disease) I73.9 Additional Codes MILLIE-7 Assessment Billing - MILLIE-7 Assessment Tool: MILLIE-7 Assessment 99584 ([id number]) PHQ-9 - 75361 - PHQ-9 Billing: Yes ([id number]) Assessment & Plan Assessment & Plan (1) Vitamin D deficiency: Code(s): E55.9 - Vitamin D deficiency, unspecified Category: Medical (2) Mild anemia: Code(s): D64.9 - Anemia, unspecified Category: Medical (3) HLD (hyperlipidemia): Code(s): E78.5 - Hyperlipidemia, unspecified Category: Medical Qualifiers: Hyperlipidemia type: mixed hyperlipidemia Qualified Code(s): E78.2 - Mixed hyperlipidemia (4) Erectile dysfunction: Code(s): N52.9 - Male erectile dysfunction, unspecified Category: Medical Qualifiers: Erectile dysfunction type: unspecified Qualified Code(s): N52.9 - Male erectile dysfunction, unspecified (5) Urinary incontinence: Code(s): R32 - Unspecified urinary incontinence Category: Medical Qualifiers: Urinary Incontinence type: unspecified incontinence Qualified Code(s): R32 - Unspecified urinary incontinence (6) Heart murmur on physical examination: Code(s): R01.1 - Cardiac murmur, unspecified Category: Medical (7) Hernia: Code(s): K46.9 - Unspecified abdominal hernia without obstruction or gangrene Category: Medical (8) PVD (peripheral vascular disease): Comment: based on physical exam; start statin, consider ASA after GI eval, monitor skin integrity Code(s): I73.9 - Peripheral vascular disease, unspecified Category: Medical Plan . Orders: Orders Vitamin D 25-OH Total 3 Months D64.9 - Anemia, unspecified, E55.9 - Vitamin D deficiency, unspecified, E78.5 - Hyperlipidemia, unspecified Complete Blood Count no Diff 3 Months D64.9 - Anemia, unspecified, E55.9 - Vitamin D deficiency, unspecified, E78.5 - Hyperlipidemia, unspecified Lipid Panel 3 Months D64.9 - Anemia, unspecified, E55.9 - Vitamin D deficiency, unspecified, E78.5 - Hyperlipidemia, unspecified Referrals Gastroenterology Referral D64.9 - Anemia, unspecified, Z12.11 - Encounter for screening for malignant neoplasm of colon Urology Referral N52.9 - Male erectile dysfunction, unspecified, R32 - Unspecified urinary incontinence Medications: New atorvastatin (Lipitor) 10 mg PO BEDTIME 90 tabs 1RF multivitamin with iron 1 tab PO DAILY 90 tabs 2RF
[2025-02-05 12:50] VITALS: BP 132/70; PULSE 76; RESP 12; TEMP 36.4; O2SAT 96; BMI 33.8
== END 2025-02-05 13:48 | disposition home or self-care (01) ==
LOC: HO.HMCFM 12:44
PROVIDERS: PCP Nurse Practitioner Family; Visit Provider Nurse Practitioner Family
DX: E55.9 Vitamin D deficiency, unspecified (principal); D64.9 Anemia, unspecified; E78.2 Mixed hyperlipidemia; N52.9 Male erectile dysfunction, unspecified; R32 Unspecified urinary incontinence; R01.1 Cardiac murmur, unspecified; K46.9 Unspecified abdominal hernia without obstruction or gangrene; I73.9 Peripheral vascular disease, unspecified

== ENCOUNTER → 2025-02-05 12:43 | Outpatient (BNVA) | payer OTHER, SELFPAY | PROVIDERS: PCP Nurse Practitioner Family; Visit Provider Nurse Practitioner Family | DX: E78.2 Mixed hyperlipidemia (principal); D64.9 Anemia, unspecified; E55.9 Vitamin D deficiency, unspecified; N52.9 Male erectile dysfunction, unspecified; R32 Unspecified urinary incontinence; R01.1 Cardiac murmur, unspecified; K64.9 Unspecified hemorrhoids; I73.9 Peripheral vascular disease, unspecified; Z13.31 Encounter for screening for depression; Z13.39 Encounter for screening examination for other mental health and behavioral disorders | CPT/HCPCS: 96127; 99212 ==

== ENCOUNTER 2025-02-11 10:23 | Outpatient (AMB) | payer OTHER, SELFPAY ==
--- NOTE | 2025-02-11 10:25 | MHC.OFFVIS ---
Vital Signs 02/11/25 10:26 Height 6 ft Weight 248 lb 2 oz BMI 33.6 Intake Visit Reasons: L ingunial hernia Intake Note: Patient is seen in office for evaluation of a left inguinal hernia repair. Pt c/o: x3 bulges, reports changes in bowel habits, reports pain/disocmfort, he had some recent labs done in [place]. Yeast Supervisor Required: No Accompanied by: Self / Same As Patient Allergies No Known Allergies Allergy (Verified 02/11/25 10:33) Medication List - Last Reconciled 02/11/25 by Alex Morris MD atorvastatin (Lipitor) 10 mg PO BEDTIME multivitamin with iron 1 tab PO DAILY HPI Comments Details: 64-year-old male patient presenting with complaints of a painful lump at his umbilicus and bilateral groins. He reports a prior umbilical hernia repair many years ago with a mesh but postoperatively developed severe nausea and vomiting and subsequently returned and was noted to have a recurrent umbilical hernia soon after the surgery. Over time this hernia has increased in size in his now causing more burning discomfort. He was then noted to have a right inguinal hernia 2 years ago and subsequently underwent repair of this right inguinal hernia also with mesh. Postoperatively he noted a lump in an area of numbness in the incision which he is concerned about. He is uncertain if the lump increases size with straining. He now notes a large lump in the left groin which is causing increased discomfort and difficulty with bowel movements. He was recently noted to be mildly anemic in his awaiting evaluation by Gastroenterology for colonoscopy. He denies a previous history of left inguinal hernia repair. He is interested in having all 3 regions addressed. 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 to a significant other at home: Yes Do you presently have visiting nurse or other home services: No 75 years or older and lives alone: No Alcohol intake: current Alcohol intake frequency: a few times a month Patient Tobacco Use Status: Never used Tobacco e-Cigarette/Vaping Use: Never Used Second Hand Smoke Exposure: No service: No Current occupational status: other 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 Current occupational exposures/hazards: No Cognitive needs: No Hearing needs: No Vision needs: No Review of Systems Const All systems reviewed & are unremarkable except as noted in HPI and below Physical Exam Vital Signs: BMI result Body Mass Index 33.6 Const General: cooperative and no acute distress Nutritional Appearance: well nourished Orientation/consciousness: patient oriented x3 Limitations: no limitations HEENT Head: Yes normocephalic and Yes atraumatic Ears: hearing grossly normal bilaterally Resp Effort & Inspection: normal respiratory effort, no audible wheezes, no cough and no respiratory distress Cardio Jugular venous distension: no JVD GI Other: Large pannus, otherwise soft and nondistended. Easily identified umbilical hernia to the left of midline measuring at least 4 cm in diameter. The hernia does reduce somewhat but not completely with light pressure. Examination of the right groin reveals a well-healed incision with no hernia noted with Valsalva maneuvers. The patient points to an area in the incision which may be a small sebaceous cyst/inclusion cyst measuring approximately 2 cm in diameter. There was no evidence of infection. Examination of the left groin however reveals a large left inguinal hernia extending into the scrotum. The hernia does increase in size with Valsalva maneuvers then reduces slightly with palpation. There is some discomfort with palpation. Inspection: Yes normal to inspection Skin Other: Warm, dry, no rash Neuro General: patient oriented x3 Extrem General: Yes no clubbing, cyanosis or edema Assessment & Plan Assessment & Plan (1) Recurrent umbilical hernia: Code(s): K42.9 - Umbilical hernia without obstruction or gangrene Category: Medical (2) Left inguinal hernia: Code(s): K40.90 - Unilateral inguinal hernia, without obstruction or gangrene, not specified as recurrent Category: Medical (3) PONV (postoperative nausea and vomiting): Code(s): R11.2 - Nausea with vomiting, unspecified; Z98.890 - Other specified postprocedural states Category: Medical (4) Epidermal inclusion cyst: Code(s): L72.0 - Epidermal cyst Category: Medical Plan 64-year-old male patient presenting with a recurrent umbilical hernia and new left inguinal hernia. He also has a cystic collection in the incision of the right groin following right inguinal hernia repair. I recommended repair of the recurrent umbilical hernia with mesh, repair of the left inguinal hernia with mesh, and excision of the right groin cyst as a short-stay surgery. After discussion of the procedure, risks, and alternatives, he consents to the surgery. This will be scheduled as a short-stay surgery at his earliest convenience. Orders: Referrals General Surgery Procedure Notification K40.90 - Unilateral inguinal hernia, without obstruction or gangrene, not specified as recurrent, K42.9 - Umbilical hernia without obstruction or gangrene, L72.0 - Epidermal cyst Coding Level of Care Code New Pt Level 4 (16981) Diagnoses Recurrent umbilical hernia K42.9 Left inguinal hernia K40.90 PONV (postoperative nausea and vomiting) R11.2; Z98.890 Epidermal inclusion cyst L72.0
[2025-02-11 10:26] VITALS: BMI 33.6
== END 2025-02-11 10:55 | disposition home or self-care (01) ==
LOC: HO.HGS 10:24
PROVIDERS: PCP Nurse Practitioner Family; Visit Provider Surgery
DX: K42.9 Umbilical hernia without obstruction or gangrene (principal); K40.90 Unilateral inguinal hernia, without obstruction or gangrene, not specified as recurrent; R11.2 Nausea with vomiting, unspecified; Z98.890 Other specified postprocedural states; L72.0 Epidermal cyst
CPT/HCPCS: 99204

== ENCOUNTER → 2025-02-11 10:23 | Outpatient (BNVA) | payer OTHER, SELFPAY | PROVIDERS: PCP Nurse Practitioner Family; Visit Provider Surgery | DX: K42.9 Umbilical hernia without obstruction or gangrene (principal); K40.90 Unilateral inguinal hernia, without obstruction or gangrene, not specified as recurrent; L72.0 Epidermal cyst; R11.2 Nausea with vomiting, unspecified; Z98.890 Other specified postprocedural states | CPT/HCPCS: 99202 ==